=== PATIENT | female | born 1990 | race Two or more races ===

== ENCOUNTER → 2022-01-15 14:14 | Outpatient (BNVA) | payer OTHER, SELFPAY | PROVIDERS: Visit Provider Physician Assistant Medical | DX: S67.41XA Crushing injury of right wrist and hand, initial encounter (principal); W31.9XXA Contact with unspecified machinery, initial encounter | CPT/HCPCS: 73110; 73130; 99203 ==

== ENCOUNTER → 2022-01-26 08:28 | Outpatient (BNVA) | payer OTHER, SELFPAY | PROVIDERS: Visit Provider Physician Assistant | DX: S67.21XA Crushing injury of right hand, initial encounter (principal); S64.01XA Injury of ulnar nerve at wrist and hand level of right arm, initial encounter; M25.641 Stiffness of right hand, not elsewhere classified | CPT/HCPCS: 99202 ==

== ENCOUNTER → 2022-02-09 13:14 | Outpatient (BNVA) | payer OTHER, SELFPAY | PROVIDERS: Visit Provider Physician Assistant | DX: M25.642 Stiffness of left hand, not elsewhere classified (principal); S67.21XD Crushing injury of right hand, subsequent encounter; S54.00XD Injury of ulnar nerve at forearm level, unspecified arm, subsequent encounter | CPT/HCPCS: 99212 ==

== ENCOUNTER 2022-03-02 14:00 | Outpatient (RCR) | payer OTHER, SELFPAY ==
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
--- NOTE | 2022-03-12 14:07 | MHC.OT.DC ---
[address] [phone] F: [phone] Occupational Therapy Discharge Note Provider: Osmar Ennis PA-C Diagnosis: Right hand crush injury Date of Evaluation: 01/26/22 Date of Discharge: 03/12/22 Treatments to Date: 3 Cancellations to Date: 2 No Shows to Date: 2 Discharge Status: Visit Non-compliance Discharge Summary: Rochelle was seen for initial OT assessment and two follow up visits over the past 6 weeks. On last visit, she was still very guarded and posturing in lumbrical plus position. She has improved posturing and AROM after treatment, but has missed several appointments. I placed a call out to the patient today and her states she is at work. I recommend continuing HEP at this time to progress range and functional use. Electronically Signed By: STEVIE Mcdowell/Viki CHT Reviewed/agree with student documentation: N/A Therapist: Please Sign and return to therapist, thank you for your referral.
== END 2022-03-12 14:08 | disposition home or self-care (01) ==
LOC: HO.OT 14:00
PROVIDERS: Visit Provider Physician Assistant
DX: S54.02XD Injury of ulnar nerve at forearm level, left arm, subsequent encounter (principal); M25.642 Stiffness of left hand, not elsewhere classified
CPT/HCPCS: 29125; 29130; 97110; 97166; 97530; 97760

== ENCOUNTER → 2022-03-14 13:20 | Outpatient (BNVA) | payer OTHER, SELFPAY | PROVIDERS: Visit Provider Physician Assistant | DX: S67.21XD Crushing injury of right hand, subsequent encounter (principal); S54.01XD Injury of ulnar nerve at forearm level, right arm, subsequent encounter; M25.642 Stiffness of left hand, not elsewhere classified | CPT/HCPCS: 99212 ==

== ENCOUNTER → 2022-04-04 08:32 | Outpatient (BNVA) | payer OTHER, MEDICAID, SELFPAY | PROVIDERS: Visit Provider Physician Assistant | DX: S67.21XD Crushing injury of right hand, subsequent encounter (principal); M25.642 Stiffness of left hand, not elsewhere classified | CPT/HCPCS: 99212 ==

== ENCOUNTER 2022-04-18 10:17 | Outpatient (REF) | payer OTHER, MEDICAID, SELFPAY ==
--- NOTE | ~2022-04-18 | XR_ITS ---
EXAMINATION: XR HAND, RIGHT CLINICAL INFORMATION: Right hand pain. COMPARISON: None TECHNIQUE: PA, lateral, and oblique views of the right hand. FINDINGS: The bones and soft tissues are normal. No fracture. Alignment is anatomic. Joint spaces are maintained. No erosions or soft tissue calcifications. XR/XR hand RT min 3V IMPRESSION: Normal right hand.
== END 2022-04-18 10:18 | disposition home or self-care (01) ==
LOC: HO.HOSX 10:17
PROVIDERS: Visit Provider Orthopaedic Surgery
DX: S67.21XD Crushing injury of right hand, subsequent encounter (principal); W31.82XD Contact with other commercial machinery, subsequent encounter; M25.642 Stiffness of left hand, not elsewhere classified; G56.01 Carpal tunnel syndrome, right upper limb
CPT/HCPCS: 73130; 99212

== ENCOUNTER 2022-05-17 11:50 | Day surgery (SDC) | payer OTHER, MEDICAID, SELFPAY ==
[2022-05-17 13:00] VITALS: BMI 24.0
[2022-05-17 13:05] VITALS: BP 106/65; PULSE 62; RESP 18; TEMP 36.6; O2SAT 99
--- NOTE | 2022-05-17 13:46 | MHC.SHP ---
Pre-Procedural Eval Section A Date of Service: 05/17/22 The patient is an INPATIENT: No Changes since office visit: No Cold of Flu in the past 2 weeks, No New Medical Problems, No Changes in Medication and No Patient answered all questions The History & Physical has been completed within 30 days and I have reviewed it.: Yes Section B Chief Complaint: CTr Allergies: Allergies Allergy/AdvReac Type Severity Reaction Status Date / Time No Known Allergies Allergy Verified 05/17/22 13:06 Plan I have reviewed the history and physical and performed a pertinent physical examination on my patient. No changes have occurred unless specified.
--- NOTE | 2022-05-17 13:46 | W.PM.OPN ---
Operative Note Operative Note Date of Service: 05/17/22 Narrative: Preop diagnosis: 1. right Carpal tunnel syndrome Postop diagnosis: same Procedure: 1. right Carpal tunnel release Surgeon: Kandis Valles MD Anesthesia: local block using 1% lidocaine with epinephrine Findings: Thickened transverse carpal ligament. EBL: Less than 5 mL Specimens: None Complications: None Disposition: Brought to recovery room in stable condition Plan: Follow-up for 10-14 days for wound check and suture removal Indications: The patient is 31 years old, with right carpal tunnel syndrome that has been unresponsive to nonoperative management. The risks and benefits of operative treatment including but not limited to risk of damage to blood vessels, nerves, tendons, infection, persistent pain, persistent symptoms, or possible need for additional surgery were discussed with the patient and the patient wishes to proceed with surgery. Procedure: Once consent was obtained a local block was performed using a combination of 1% lidocaine with epinephrine. The patient was then brought back to the operating suite and placed on the operative table in supine position. A tourniquet was applied to the proximal aspect of the upper extremity and the limb was prepped and draped in a standard surgical fashion. Once assured that we had a good block, a 1.5 cm longitudinal incision was made centered over the carpal tunnel. The incision was made through the skin to the subcutaneous tissues using a #15 blade. Dissection was made down to the level of the transverse carpal ligament with care being taken to protect the palmar cutaneous nerve. Once the transverse carpal ligament was clearly visualized, a longitudinal incision was made in the transverse carpal ligament 1st using a #15 blade, then using tenotomy scissors under direct visualization. Care was taken to look for and protect the motor branch of the median nerve when seen in this area. Once satisfied with our carpal tunnel release the wound was copiously irrigated with normal saline and hemostasis was obtained with a brief period of local pressure. The skin edges were reapproximated with some 5.0 nylon suture material and a sterile dressing was applied. The patient appears to have tolerated the procedure well and with no complications. All digits were well vascularized at the conclusion of the case.
--- NOTE | 2022-05-17 15:37 | PC.NURSE ---
POST OP VITAL SIGNS; 103/69, 69, 17, 02 sat 100%
== END 2022-05-17 15:38 | disposition home or self-care (01) ==
PROVIDERS: Visit Provider Orthopaedic Surgery
PROC: (CPT 64721; principal; 2022-05-17 14:10)
DX: G56.01 Carpal tunnel syndrome, right upper limb (principal); R20.0 Anesthesia of skin; M79.641 Pain in right hand; S67.21XA Crushing injury of right hand, initial encounter; W31.89XA Contact with other specified machinery, initial encounter; Y93.89 Activity, other specified; Y92.69 Other specified industrial and construction area as the place of occurrence of the external cause; Y99.0 Civilian activity done for income or pay
CPT/HCPCS: 64721; J0171

== ENCOUNTER → 2022-07-25 14:22 | Outpatient (BNVA) | payer OTHER, MEDICAID, SELFPAY | PROVIDERS: Visit Provider Orthopaedic Surgery | DX: G56.01 Carpal tunnel syndrome, right upper limb (principal); M25.642 Stiffness of left hand, not elsewhere classified; T14.8XXD Other injury of unspecified body region, subsequent encounter | CPT/HCPCS: 99212 ==

== ENCOUNTER 2022-09-12 16:43 | Outpatient (REF) | payer OTHER, MEDICAID, SELFPAY ==
--- NOTE | ~2022-09-12 | MR_ITS ---
EXAMINATION: MR WRIST WITHOUT CONTRAST, RIGHT CLINICAL INFORMATION: Right wrist pain and clicking. COMPARISON: Most recent right hand radiographs dated 04/18/2022. TECHNIQUE: MRI of the wrist was performed using routine sequences on a high-field scanner. FINDINGS: TRIANGULAR FIBROCARTILAGE: Attenuation through the central radial aspect of the triangular fibrocartilage complex with a probable focal full-thickness tear measuring 0.1 cm in ML dimension (coronal image 13/20). INTRINSIC LIGAMENTS: Intact. TENDONS/MEDIAN NERVE: Intact. ARTICULAR CARTILAGE/BONE: Intact articular cartilage. No marrow edema. No fracture or dislocation. No concerning lytic or blastic osseous lesion. JOINT FLUID/SOFT TISSUES: Cyst ventral to the radial styloid measuring up to 0.2 x 0.6 x 0.5 cm, consistent with a synovial recess versus ganglion cyst. MR/MR wrist RT wo con IMPRESSION: 1. Attenuation through the central radial aspect of the triangular fibrocartilage complex with a probable focal full-thickness tear measuring 0.1 cm in ML dimension. 2. Synovial recess versus ganglion cyst ventral to the radial styloid measuring up to 0.6 cm.
== END 2022-09-12 16:44 | disposition home or self-care (01) ==
LOC: HO.MRI 16:43
PROVIDERS: Visit Provider Orthopaedic Surgery
DX: M25.531 Pain in right wrist (principal)
CPT/HCPCS: 73221

== ENCOUNTER → 2022-12-04 13:26 | Outpatient (BNVA) | payer OTHER, MEDICAID, SELFPAY | PROVIDERS: Visit Provider Orthopaedic Surgery | DX: M25.642 Stiffness of left hand, not elsewhere classified (principal); T14.8XXA Other injury of unspecified body region, initial encounter; G56.01 Carpal tunnel syndrome, right upper limb | CPT/HCPCS: 99212 ==